=== PATIENT | female | born 1980 | race Caucasian/White ===

== ENCOUNTER 2024-08-23 10:52 | Emergency (ER) | payer OTHER, SELFPAY ==
[2024-08-23] VITALS (7 sets, daily range): BP systolic 125–171; BP diastolic 80–103; BMI 25.7
[2024-08-23] MEDS: BENADRYL 25 MG IV (12:09)
[2024-08-23] MEDS: COMPAZINE 5 MG IV (12:09)
[2024-08-23] MEDS: NSS 1000 IV (12:20)
[2024-08-23] MEDS: OFIRMEV 100 IV (12:21)
[2024-08-23 12:25] LABS: ALT (SGPT) 16 U/L (0-35); AST (SGOT) 24 U/L (14-36); Albumin 4.4 g/dl (3.5-5.0); Alkaline Phosphatase 41 U/L (38-126); Blood Urea Nitrogen 16 mg/dl (7-17); Calcium 9.9 mg/dl (8.4-10.2); Carbon Dioxide 22 mmol/L (22-30); Chloride 108 mmol/L (98-107); Estimated Creatinine Clearance 95 ml/min; Glucose 95 mg/dl (70-99); Potassium 4.5 mmol/L (3.5-5.1); Sodium 142 mmol/L (135-145); Total Bilirubin 0.7 mg/dl (0.2-1.3); Total Protein 7.4 g/dl (6.3-8.2); eGFR > 60.00
[2024-08-23 12:36] LABS: Erythrocyte Sed Rate 12 mm/hour (0-20)
[2024-08-23 12:47] LABS: % Basophils 0.4 % (0-2); % Eosinophils 0.3 % (0-6); % Immature Granulocytes 0.5 % (0-0.5); % Monocytes 4.7 % (1.7-9.3); % Neutrophils 82.1 % (42.2-75.2); Absolute Immature Granulocytes 0.1 10^3/uL (0-0.05); Absolute Lymphocytes 1.3 10^3/uL (1.2-3.4); Absolute Monocytes 0.5 10^3/uL (0.1-0.6); Absolute Neutrophils 8.7 10^3/uL (1.4-6.5); Hematocrit 39.4 % (37.0-47.0); Hemoglobin 13.8 g/dL (12.0-16.0); Mean Corpuscular Hgb 32.5 pg (27.0-31.0); Mean Corpuscular Volume 92.9 fL (81.0-99.0); Nucleated Red Blood Cells % 0 %; Red Blood Cell Count 4.24 10^6/uL (4.20-5.40); White Blood Cell Count 10.6 10^3/uL (4.8-10.8)
--- NOTE | 2024-08-23 14:04 | ED.GENMED ---
History of Present Illness
<Kyle Magallon MD - Last Filed: 08/25/24 18:59>
General
Chief Complaint: Headache
Source: patient
Exam Limitations: none
Time Seen by Provider: 08/23/24 11:31
History of Present Illness
History of Present Illness:
43-year-old female complaining of headache for 10 days. Mostly bifrontal. Started when she was in [place]. Had some pain in her right ear. [place] like her ear was clogged. However she developed dizziness the last 2 to 3 days and nausea and vomiting
the last 24 hours. No fever no neck pain no numbness tingling or weakness.
Past History
<Kyle Magallon MD - Last Filed: 08/25/24 18:59>
Past History
ED Past Medical History: None; Negative Asthma, HTN, Hypercholesterolemia or NIDDM
ED Past Surgical History: Cholecystectomy, Gynecological and Other (Kidney biopsy,)
Social History
Tobacco: Non-smoker
Alcohol: Occasional
Personal:
Living: with family
Review of Systems
<Kyle Magallon MD - Last Filed: 08/25/24 18:59>
Review of Systems
All Other Systems: Not applicable
Constitutional: Denies fever
Respiratory: Reports no symptoms
Cardiac: Reports no symptoms
ABD/GI: Reports no symptoms
Phy Exam
<Kyle Magallon MD - Last Filed: 08/25/24 18:59>
Physical Exam
Physical Exam:
GENERAL: Alert and oriented in no apparent distress
EYE: Orbits normal.
NECK: Supple, nontender
ENT: Pharynx without erythema. Slight dullness to both TMs right greater than left however no erythema no drainage
CARDIAC: Regular rate and rhythm without any obvious murmurs.
LUNGS: Clear breath sounds,normal
ABDOMEN: Soft, without focal tenderness or distention
NEUROLOGICAL: Alert and oriented , grossly non-focal. Speech normal. No facial droop. Polarity Tester normal.
SKIN: Warm and dry, no rash or lesion, no discoloration, skin intact.
MUSCULOSKELETAL: No edema,no deformity.Good color
PSYCH: Normal and appropriate interaction.
Course
<Kyle Magallon MD - Last Filed: 08/25/24 18:59>
Orders/Labs/Results
Orders:
Orders
08/23/24 11:41
Cardiac Monitoring- Treatment ONCE
IV Insert/Care/Rem.- Treatment PRN
0.9% Sodium Chloride 1000 ml [Nss] 1,000 ml IV BOLUS
Acetaminophen 1000MG/100Ml [Ofirmev] 1,000 mg in 100 ml IV ONCE
Acetaminophen IV Indication:: ED Narcotic Naive Pt-ONCE
Diphenhydramine [Benadryl] 25 mg IV NOW STA
Prochlorperazine [Compazine] 5 mg IV NOW STA
Pulse Ox/cont/shift [RESP] Stat
Quantity: 1
08/23/24 11:42
CT Head & Neck Angio W/wo IV Urgent
Comment:
Reason For Exam: Severe headache
08/23/24 12:05
Comprehensive Metabolic Panel Urgent
Lyme Progressive Urgent
08/23/24 12:06
Complete Blood Count/With Diff Urgent
Erythrocyte Sed Rate Urgent
08/23/24 14:42
COVID-19 Antigen Urgent
Source: Nasal Swab
08/23/24 14:49
Ondansetron Injectable [Zofran] 4 mg IV NOW STA
08/23/24 16:02
Ketorolac [Toradol] 15 mg IV NOW STA
08/23/24 16:40
Sumatriptan Succinate [Imitrex] 6 mg SC NOW STA
Abnormal Lab Results
08/23/24 08/23/24
12:05 12:06
MCH 32.5 H pg
(27.0-31.0)
Abs Immat Gran (auto) 0.1 H 10^3/uL
(0-0.05)
Absolute Neuts (auto) 8.7 H 10^3/uL
(1.4-6.5)
Neutrophils % 82.1 H %
(42.2-75.2)
Lymphocytes % 12.0 L %
(20.5-51.1)
Chloride 108 H mmol/L
(98-107)
08/23/24 12:06
08/23/24 12:05
Vital Signs
Initial and Last Documented VS:
Initial Vital Signs
Temp Pulse Resp BP Pulse Ox
98.4 F 74 18 171/103 99
08/23/24 10:58 08/23/24 10:58 08/23/24 10:58 08/23/24 10:58 08/23/24 10:58
Last Documented Vital Signs
Temp Pulse Resp BP Pulse Ox
98.4 F 62 17 125/80 98
08/23/24 10:58 08/23/24 17:14 08/23/24 17:06 08/23/24 16:22 08/23/24 17:14
<Los Jeffrey DO - Last Filed: 08/23/24 16:52>
Orders/Labs/Results
Orders:
Orders
08/23/24 11:41
Cardiac Monitoring- Treatment ONCE
IV Insert/Care/Rem.- Treatment PRN
0.9% Sodium Chloride 1000 ml [Nss] 1,000 ml IV BOLUS
Acetaminophen 1000MG/100Ml [Ofirmev] 1,000 mg in 100 ml IV ONCE
Acetaminophen IV Indication:: ED Narcotic Naive Pt-ONCE
Diphenhydramine [Benadryl] 25 mg IV NOW STA
Prochlorperazine [Compazine] 5 mg IV NOW STA
Pulse Ox/cont/shift [RESP] Stat
Quantity: 1
08/23/24 11:42
CT Head & Neck Angio W/wo IV Urgent
Comment:
Reason For Exam: Severe headache
08/23/24 12:05
Comprehensive Metabolic Panel Urgent
Lyme Progressive Urgent
08/23/24 12:06
Complete Blood Count/With Diff Urgent
Erythrocyte Sed Rate Urgent
08/23/24 14:42
COVID-19 Antigen Urgent
Source: Nasal Swab
08/23/24 14:49
Ondansetron Injectable [Zofran] 4 mg IV NOW STA
08/23/24 16:02
Ketorolac [Toradol] 15 mg IV NOW STA
08/23/24 16:40
Sumatriptan Succinate [Imitrex] 6 mg SC NOW STA
Abnormal Lab Results
08/23/24 08/23/24
12:05 12:06
MCH 32.5 H pg
(27.0-31.0)
Abs Immat Gran (auto) 0.1 H 10^3/uL
(0-0.05)
Absolute Neuts (auto) 8.7 H 10^3/uL
(1.4-6.5)
Neutrophils % 82.1 H %
(42.2-75.2)
Lymphocytes % 12.0 L %
(20.5-51.1)
Chloride 108 H mmol/L
(98-107)
08/23/24 12:06
08/23/24 12:05
Vital Signs
Initial and Last Documented VS:
Initial Vital Signs
Temp Pulse Resp BP Pulse Ox
98.4 F 74 18 171/103 99
08/23/24 10:58 08/23/24 10:58 08/23/24 10:58 08/23/24 10:58 08/23/24 10:58
Last Documented Vital Signs
Temp Pulse Resp BP Pulse Ox
98.4 F 62 17 125/80 98
08/23/24 10:58 08/23/24 17:14 08/23/24 17:06 08/23/24 16:22 08/23/24 17:14
<Kyle Magallon MD - Last Filed: 08/25/24 18:59>
MDM/Problems Addressed
Differential Diagnosis Includes:
Patient complaining of bifrontal ongoing headache with nausea and vomiting and some vertigo. Clinically is not toxic. This was not a thunderclap headache. Her neck is supple. Low suspicion for bacterial meningitis. Workup in progress
<Kyle Magallon MD - Last Filed: 08/25/24 18:59>
*Pulse Oximetry
Patient hypoxic: no
*Critical Care Note
Total Time (30-74mins, 75-104mins- exclusive of procedures): Not Applicable
<Kyle Magallon MD - Last Filed: 08/25/24 18:59>
Update Note
Update Note:
1455.... Patient states he still has some ongoing nausea and headache. Will give Toradol but would like to confirm negative CT angio first. She is clinically very nontoxic and very alert. She has no fever normal white count. Mild neutrophil
shift but is on steroids. Clinical suspicion for bacterial meningitis very low. I did discuss lumbar puncture which she would dearly like to avoid. I also discussed admission and observation in the hospital which she also states she would highly
prefer to avoid. We will try the Toradol after CT results and reevaluate
Of note reviewing her history of the symptoms started when landing on the plane with right ear pain and fullness. She has difficulty popping her ears. She has had vertigo in the past. Headache bifrontal in nature just darted today but again was
not a thunderclap headache. No fever or rash.
<Los Jeffrey DO - Last Filed: 08/23/24 16:52>
Update Note
Update Note:
1455.... Patient states he still has some ongoing nausea and headache. Will give Toradol but would like to confirm negative CT angio first. She is clinically very nontoxic and very alert. She has no fever normal white count. Mild neutrophil
shift but is on steroids. Clinical suspicion for bacterial meningitis very low. I did discuss lumbar puncture which she would dearly like to avoid. I also discussed admission and observation in the hospital which she also states she would highly
prefer to avoid. We will try the Toradol after CT results and reevaluate
Of note reviewing her history of the symptoms started when landing on the plane with right ear pain and fullness. She has difficulty popping her ears. She has had vertigo in the past. Headache bifrontal in nature just darted today but again was
not a thunderclap headache. No fever or rash.
1645 patient reassessed and appears well. Cranial nerves intact. Speech normal. Labs and CT unremarkable. Patient feels well enough to go home. Will trial migraine treatment with sumatriptan and Maxalt at home. Recommend close PCP follow-up
ED Attending Note
<Kyle Magallon MD - Last Filed: 08/25/24 18:59>
-
Portions of this chart may have been created with voice recognition software.� Occasional wrong word or��sound alike� substitutions may have occurred due to the inherent limitations of voice recognition software.
Discharge Plan
Departure
Patient Disposition: Home (Routine Discharge)
Date of Disposition: 08/23/24
Time of Disposition: 16:50
Patient with high blood pressure during this ER visit?: No
Discharge Problem:
Headache
Instructions: Headache, Adult (DC)
Prescriptions:
New
rizatriptan [Maxalt] 10 mg tablet
10 mg PO ONCE PRN (Reason: migraine headache) Qty: 15 0RF
Rx Instructions:
May repeat dose times x 1 2 hours after 1st dose.
No Action
dexlansoprazole [Dexilant] 60 MG capsule,biphase delayed releas
60 mg PO DAILY
oxycodone-acetaminophen 5 MG/325 MG tablet
1 tab PO Q4HPRN PRN (Reason: Pain) Qty: 15 0RF
Referrals:
Albino Dickson DO [Family Provider] -
Activity Restrictions/Additional Instructions:
Please be sure to see your doctor in the next 3 days for follow-up and reevaluation. If your headache persist, an outpatient MRI of your brain is necessary. Return immediately for motor weakness of any kind, fevers, changes in mentation, vision
changes, sensory changes or any other concerns.
Interventions
Interventions:
*Risk Screen - Suicide Last Done: 08/23/24 10:58
*General Assessment Last Done: 08/23/24 10:58
*Neglect/Abuse Screening Last Done: 08/23/24 10:58
ED- Fall Risk Assessment Last Done: 08/23/24 11:31
*ED COVID-19 Vaccine History Last Done: 08/23/24 11:30
*Nursing Disposition Last Done: 08/23/24 17:14
ED- Neurological Assessment Last Done: 08/23/24 12:29
Discharge Date and Time
Discharge Date/Time: 08/23/24 17:14
Print Language: LIBYAN
[2024-08-23] MEDS: ZOFRAN 4 MG IV (14:56)
[2024-08-23 15:06] LABS: COVID-19 Antigen Negative (Negative)
[2024-08-23] MEDS: TORADOL 15 MG IV (16:07)
[2024-08-23] MEDS: IMITREX 6 MG SC (16:50)
[2024-08-24 15:14] LABS: Lyme Antibody Screen, EIA Negative (Negative)
== END 2024-08-23 17:14 | disposition home or self-care (01) ==
LOC: EMR 10:52
PROVIDERS: EMERGENCY PHYSICIAN Emergency Medicine; FAMILY PHYSICIAN Family Medicine
DX: R51.9 Headache, unspecified (principal); H92.01 Otalgia, right ear; Z90.49 Acquired absence of other specified parts of digestive tract
CPT/HCPCS: 99284; 96374; 96375; 96361; 70496; 70498; 80053; 85025; 85652; 86618; 87811; Q9967